=== PATIENT | female | born 1980 | race American Indian/Alaskan Native ===

== ENCOUNTER 2017-08-10 17:43 | Outpatient (CLI) | payer MEDICAID ==
[2017-08-10] MEDS ORDERED: LACTATED RINGERS 500 ML IV ONE (17:50)
[2017-08-10 18:18] VITALS: BP 128/78
[2017-08-10 19:39] LABS: Bacteria,Urine 2+ /HPF (Negative); Bilirubin,Urine NEG (Negative); Blood,Urine NEG (Negative); Ketones,Urine NEG (Negative); Leukocyte Esterase,Urine SM (Negative); Mucus,Urine FEW /HPF; Nitrite,Urine NEG (Negative); Protein,Urine <15 mg/dL mg/dL (Negative)
[2017-08-10] MEDS ORDERED: ceFAZolin 2 GM in NACL 0.9% 100 ML IV ONE (21:08)
== END 2017-08-10 21:39 | disposition home or self-care (01) ==
LOC: TRG 17:43
PROVIDERS: ATTEND Obstetrics & Gynecology
DX: Z34.92 Encounter for supervision of normal pregnancy, unspecified, second trimester (principal); Z3A.23 23 weeks gestation of pregnancy
CPT/HCPCS: 59025; 81001; 96360; 96361; 96365; J0690; J7120